=== PATIENT | female | born 1995 ===

== ENCOUNTER 2024-01-29 10:47 | Inpatient (IN) | payer OTHER ==
[2024-01-26 13:39] LABS: BASOPHILS % 0.2 % (0.0-1.0); EOSINOPHILS # (AUTO) 0.1 (0.0-0.4); EOSINOPHILS % 0.6 % (0.0-6.0); HEMATOCRIT 40.1 % (34.2-44.1); HEMOGLOBIN 12.6 g/dL (12.0-16.0); LYMPHOCYTES # (AUTO) 1.9 (1.0-3.2); LYMPHOCYTES % 19.4 % (18.0-39.1); MEAN CORPUSCULAR HEMOGLOBIN 30.1 pg (28-32); MEAN CORPUSCULAR HGB CONC 31.4 g/dL (31-35); MEAN CORPUSCULAR VOLUME 95.7 fL (81-99); MONOCYTES # (AUTO) 0.9 (0.2-0.8); NEUTROPHILS # (AUTO) 6.8 (2.1-6.9); NEUTROPHILS % 70.5 % (38.7-80.0); PLATELET COUNT 397 x10e3/uL (140-360); RED BLOOD COUNT 4.19 x10e6/uL (3.6-5.1); RED CELL DISTRIBUTION WIDTH 12.7 % (11.7-14.4)
[2024-01-26 14:02] LABS: ANION GAP 17.1 mmol/L (8-16); BLOOD UREA NITROGEN 8 mg/dL (7-26); BUN/CREATININE RATIO 12 (6-25); CARBON DIOXIDE 24 mmol/L (22-29); CHLORIDE 100 mmol/L (98-107); CREATININE, SERUM 0.69 mg/dL (0.57-1.11); EST GLOMERULAR FILTRATION RATE 123 ML/MIN (>=60); GLUCOSE 97 mg/dL (74-118); POTASSIUM 4.1 mmol/L (3.5-5.1); SODIUM 137 mmol/L (136-145)
[~2024-01-29 10:47] MED LIST: AMOXICILLIN500 MG PO; TYLENOL EXTRA500 MG PO
[2024-01-29] MEDS ORDERED: LIDOCAINE HCL (LTA) 4 ML SOLN ONE (12:06)
[2024-01-29] MEDS ORDERED: SEVOFLURANE INHAL SOLN 250 ML PEN BTL ONE (12:06)
[2024-01-29] MEDS ORDERED: LIDOCAINE HCL 2% LOCAL INJ 5 ML SDV VIAL INJ ONE (12:06)
[2024-01-29] MEDS ORDERED: ROCURONIUM BROMIDE 1 ML IV ONE (12:06)
[2024-01-29] MEDS ORDERED: FENTANYL CITRATE/PF 100MCG/2 ML INJ ONE ×2 (12:06→13:32)
[2024-01-29] MEDS ORDERED: MIDAZOLAM HCL 2 MG/2 ML VIAL ONE (12:06)
[2024-01-29] MEDS ORDERED: PROPOFOL IV EMULSION 10 MG/ML 20 ML VIAL ONE (12:06)
[2024-01-29] MEDS ORDERED: ACETAMINOPHEN 1000 MG/100 ML 100 ML IV ONE (12:06)
[2024-01-29] MEDS ORDERED: DEXMEDETOMIDINE HCL 2 ML ONE (12:07)
[2024-01-29] MEDS ORDERED: FAMOTIDINE 20 MG/2 ML VIAL IV ONE (12:09)
[2024-01-29] MEDS ORDERED: DEXAMETHASONE SOD PHOS INJ 4 MG/ML SDV ONE (12:25)
[2024-01-29] MEDS ORDERED: ONDANSETRON HCL INJ 2MG/ML 2ML 2 MG/ML VIAL ONE (12:25)
[2024-01-29] MEDS: LACTATED RINGER'S 1,000 ML ONE (13:03)
[2024-01-29] MEDS: CEFAZOLIN SODIUM 2 GM ONE (13:04)
[2024-01-29] MEDS ORDERED: SUGAMMADEX SODIUM 200 MG/2 ML VIAL IV ONE (13:26)
[2024-01-29] MEDS ORDERED: ACETAMINOPHEN 325 MG TAB PO PRN (14:00)
[2024-01-29] MEDS ORDERED: ONDANSETRON HCL INJ 2MG/ML 2ML 2 MG/ML VIAL IV PRN (14:00)
[2024-01-29] MEDS: FENTANYL CITRATE/PF 100MCG/2 ML INJ ONE (14:07)
[2024-01-29] MEDS: SODIUM CHLORIDE 0.9% 1000ML 1,000 ML IV SCH (15:55)
[2024-01-29] MEDS: Morphine 4mg INJECTION 4 MG/ML INJ IV PRN (15:56)
[2024-01-29] MEDS: CEFTRIAXONE 2 GM in SODIUM CHLORIDE 0.9% 100 ML IV SCH (16:01)
[2024-01-29 16:35] VITALS: PULSE 74; RESP 20; O2SAT 98
[2024-01-29 17:06] VITALS: BP 110/74; PULSE 94; RESP 16; TEMP 98.2; O2SAT 98
[2024-01-29 17:33] VITALS: BP 110/74; PULSE 94; RESP 16; TEMP 98.2; O2SAT 98
[2024-01-29 20:00] VITALS: BP 105/70; PULSE 78; RESP 18; TEMP 97.6; O2SAT 100
[2024-01-30] VITALS (8 sets, daily range): BP systolic 101–111; BP diastolic 59–72; PULSE 70–97; RESP 16–20; TEMP 98–98.4; O2SAT 98–100
[2024-01-30 05:50] LABS: BASOPHILS % 0.2 % (0.0-1.0); HEMATOCRIT 30.4 % (34.2-44.1); HEMOGLOBIN 10.2 g/dL (12.0-16.0); LYMPHOCYTES # (AUTO) 1.2 (1.0-3.2); LYMPHOCYTES % 10.4 % (18.0-39.1); MEAN CORPUSCULAR HEMOGLOBIN 30.4 pg (28-32); MEAN CORPUSCULAR HGB CONC 33.6 g/dL (31-35); MEAN CORPUSCULAR VOLUME 90.7 fL (81-99); MONOCYTES # (AUTO) 0.7 (0.2-0.8); MONOCYTES % 6.4 % (4.4-11.3); NEUTROPHILS # (AUTO) 9.1 (2.1-6.9); NEUTROPHILS % 82.5 % (38.7-80.0); PLATELET COUNT 319 x10e3/uL (140-360); RED BLOOD COUNT 3.35 x10e6/uL (3.6-5.1); RED CELL DISTRIBUTION WIDTH 12.7 % (11.7-14.4); WHITE BLOOD COUNT 11.07 x10e3/uL (4.8-10.8)
[2024-01-30 06:16] LABS: ANION GAP 14.4 mmol/L (8-16); CALCIUM 8.5 mg/dL (8.4-10.2); CREATININE, SERUM 0.63 mg/dL (0.57-1.11); POTASSIUM 4.4 mmol/L (3.5-5.1)
[2024-01-30] MEDS: Vancomycin IV 1 GM in SODIUM CHLORIDE 0.9% 250ML 250 ML IV SCH (09:44)
[2024-01-30] MEDS ORDERED: SODIUM CHLORIDE 0.9% 100 ML ONE (12:16)
[2024-01-30] MEDS ORDERED: IOPAMIDOL 370 MG/ML 100 ML INFUS..BTL INJ ONE (12:16)
[2024-01-30 13:14] LABS: HIV 1&2 AB SCREEN NON-REACTIVE (NONREACTIVE)
[2024-01-30 13:15] LABS: HIV- 1 P24 AG SCREEN NON-REACTIVE (NONREACTIVE)
[2024-01-30] MEDS: HYDROCODONE/APAP 5MG-325MG TAB PO PRN (17:38)
[2024-01-31] VITALS (11 sets, daily range): BP systolic 94–108; BP diastolic 60–75; PULSE 71–91; RESP 16–18; TEMP 97.7–98.2; O2SAT 100
[2024-01-31] MEDS ORDERED: HYDROCODON-ACE1 EA11 PO (06:18)
[2024-02-01 00:47] VITALS: BP 96/59; PULSE 82; RESP 17; TEMP 98.1; O2SAT 100
[2024-02-01 04:00] VITALS: BP 104/68; PULSE 78; RESP 16; TEMP 97.6; O2SAT 100
[2024-02-01 08:00] VITALS: BP 104/68; PULSE 78; RESP 16; TEMP 97.6; O2SAT 100
[2024-02-01 08:18] VITALS: BP 103/68; PULSE 79; RESP 18; TEMP 97.7; O2SAT 99
[2024-02-01 10:17] VITALS: PULSE 77; RESP 19; O2SAT 100
[2024-02-01 11:42] VITALS: BP 109/67; PULSE 85; RESP 18; TEMP 97.8; O2SAT 95
== END 2024-02-01 15:59 | disposition home health service (06) | DRG 581 ==
LOC: OR 10:47 → PACU V 14:10 → MED/SURG2 15:00 → OBSVTOIN 02-01 10:26
PROVIDERS: ADMIT Surgery; ATTEND Surgery
PROC: 0W960ZX Drainage of Neck, Open Approach, Diagnostic (ICD-10-PCS; 2024-01-29)
PROC: 0KB30ZX Excision of Left Neck Muscle, Open Approach, Diagnostic (ICD-10-PCS; principal; 2024-01-29 12:20)
PROC: 02HV33Z Insertion of Infusion Device into Superior Vena Cava, Percutaneous Approach (ICD-10-PCS; 2024-01-30)
DX: L02.11 Cutaneous abscess of neck (principal); R13.10 Dysphagia, unspecified; R22.1 Localized swelling, mass and lump, neck; B95.4 Other streptococcus as the cause of diseases classified elsewhere; T81.82XA Emphysema (subcutaneous) resulting from a procedure, initial encounter
CPT/HCPCS: 36415; 36569; 70491; 70551; 71045; 71260; 74177; 80048; 84702; 85025; 87071; 87075; 87186; 87205; 87390; 88305; 88307; 88331; 94799; G0378; G0433; G0435; J0690; J0696; J1100; J1335; J2003; J2250; J2270; J2405; J7030; J7050; Q9967